=== PATIENT | female | born 1935 | race Caucasian/White ===

== ENCOUNTER 2024-06-29 10:21 | Observation (INO) | payer MEDICARE ==
[~2024-06-29] VITALS: Ht 167.6 cm; Wt 64.9 kg
[~2024-06-29 10:21] MED LIST: B COMPLEX1 EACH PO; CALCIUM600 MG PO; DICYCLOMINE HCL20 MG PO; GABAPENTIN300 MG PO; LEVOTHYROXINE50 MCG PO; LUNESTA3 MG PO; PROBIOTIC & AC1 EACH PO; ROPIVACAINE/EPI/CLONIDINE/KET 50 ML SYRINGE INJ ONE; VENTOLIN HFA18 GM INH; VITAMIN C1000 MG PO; VITAMIN D3 COM1 EACH PO
[2024-06-29] MEDS ORDERED: TRANEXAMIC ACID 20 ML ONE (10:38)
[2024-06-29] MEDS ORDERED: Vancomycin IV 500 MG ONE (10:38)
[2024-06-29] MEDS ORDERED: SODIUM CHLORIDE 0.9% 500ML 500 ML ONE (10:38)
[2024-06-29] MEDS: DEXAMETHASONE SOD PHOS 10 MG/1 ML VIAL ONE (11:03)
[2024-06-29] MEDS: GABAPENTIN 300 MG CAP ONE (11:05)
[2024-06-29] MEDS: CEFAZOLIN SODIUM 2 GM ONE (11:05)
[2024-06-29] MEDS: LACTATED RINGER'S 1,000 ML ONE (11:06)
[2024-06-29] MEDS: CELECOXIB 200 MG CAP ONE (11:06)
[2024-06-29] MEDS: FENTANYL CITRATE/PF 100MCG/2 ML INJ ONE (14:54)
[2024-06-29] MEDS: HYDROCODONE/APAP 7.5MG-325MG 1 EA TAB ONE (14:54)
[2024-06-29] MEDS ORDERED: DIPHENHYDRAMINE HCL INJ 50 MG/ML VIAL IV PRN (15:30)
[2024-06-29] MEDS ORDERED: DOCUSATE SODIUM 100 MG CAP PO PRN (15:30)
[2024-06-29] MEDS ORDERED: ACETAMINOPHEN 650 MG SUPP PR PRN (15:30)
[2024-06-29] MEDS ORDERED: HYDROCODONE/APAP 5MG-325MG TAB PO PRN (15:30)
[2024-06-29 16:30] VITALS: BP 115/53; PULSE 53; RESP 20; TEMP 98.2; O2SAT 98
[2024-06-29 16:45] VITALS: BP 115/53; PULSE 53; RESP 18; TEMP 98.2; O2SAT 98
[2024-06-29] MEDS: HYDROCODONE/APAP 7.5MG-325MG 1 EA TAB PO PRN (16:53)
[2024-06-29] MEDS ORDERED: ASPIRIN 325 MG TAB PO SCH (17:00)
[2024-06-29] MEDS ORDERED: CELECOXIB 100 MG CAP PO SCH (17:00)
[2024-06-29 17:25] VITALS: PULSE 87; RESP 18; O2SAT 93
[2024-06-29] MEDS: ROPIVACAINE 246.25 MG, EPINEPHRINE HCL 1:1000 1ML 0.5 MG, CLONIDINE HCL 0.08 MG, KETORO... INJ ONE (18:04)
[2024-06-29] MEDS: SODIUM CHLORIDE 0.9% 1000ML 1,000 ML IV SCH (19:20)
[2024-06-29 19:53] VITALS: PULSE 60; RESP 16; O2SAT 96
[2024-06-29 20:00] VITALS: BP 118/58; PULSE 52; RESP 16; TEMP 97.3; O2SAT 100
[2024-06-29 21:00] VITALS: BP 118/58; PULSE 52; RESP 16; TEMP 97.3; O2SAT 100
[2024-06-30] VITALS (9 sets, daily range): BP systolic 110–159; BP diastolic 48–72; PULSE 52–78; RESP 16–19; TEMP 97.5–98; O2SAT 94–100
[2024-06-30 05:37] LABS: HEMOGLOBIN 12.4 g/dL (12.0-16.0)
[2024-06-30] MEDS ORDERED: ASPIRIN81 MG PO (07:32)
[2024-06-30] MEDS ORDERED: ALBUTEROL SULF 0.083% NEB SOLN 3 ML NEB INH PRN (08:00)
[2024-06-30] MEDS ORDERED: ASPIRIN 81 MG CHEW TAB PO SCH (09:00)
[2024-06-30] MEDS: DICYCLOMINE HCL 20 MG TAB PO SCH (09:09)
[2024-06-30] MEDS: LEVOTHYROXINE SODIUM 50 MCG TAB PO SCH (09:09)
[2024-06-30] MEDS: GABAPENTIN 300 MG CAP PO SCH (09:10)
[2024-06-30] MEDS: ASCORBIC ACID 500 MG TAB PO SCH (09:10)
[2024-06-30] MEDS: GABAPENTIN 100 MG CAP PO SCH (09:46)
[2024-06-30] MEDS: ONDANSETRON HCL INJ 2MG/ML 2ML 2 MG/ML VIAL IV PRN (11:50)
[2024-06-30] MEDS: LACTOBACILLUS ACIDOPHILUS CAPSULE PO SCH (11:50)
[2024-06-30] MEDS ORDERED: ACETAMINOPHEN 1000 MG/100 ML IV PRN (15:30)
== END 2024-06-30 18:08 | disposition home health service (06) ==
LOC: OR 10:21 → PACU V 15:21 → MED/SURG 16:13
PROVIDERS: ADMIT Specialist; ATTEND Specialist
DX: M17.12 Unilateral primary osteoarthritis, left knee (principal); I10 Essential (primary) hypertension; E03.9 Hypothyroidism, unspecified; G62.9 Polyneuropathy, unspecified; K58.9 Irritable bowel syndrome, unspecified; K29.70 Gastritis, unspecified, without bleeding; Z88.6 Allergy status to analgesic agent
CPT/HCPCS: 27447; 36415; 73560; 85014; 85018; 86850; 86900; 94799 ×2; 97110; 97116 ×2; 97162; 97530; 99252; C1713 ×2; C1776 ×4; G0378 ×2; J0171; J0690 ×3; J1100; J2405 ×2; J2795; J3010; J3370; J7030 ×2; J7040; J7121; J1885